=== PATIENT | male | born 1970 | race Caucasian/White ===

== ENCOUNTER 2024-02-26 14:57 | Emergency (ER) | payer OTHER ==
[~2024-02-26] VITALS: Ht 177.8 cm; Wt 81.6 kg
[2024-02-26 15:17] VITALS: BP 147/88; TEMP 98; O2SAT 98
[2024-02-26] MEDS ORDERED: IBUP-1490 PO (18:28)
[2024-02-26] MEDS ORDERED: ACET-2605 PO (18:28)
== END 2024-02-26 18:59 | disposition home or self-care (01) ==
LOC: ER 15:38
DX: S52.591A Other fractures of lower end of right radius, initial encounter for closed fracture (principal); S52.611A Displaced fracture of right ulna styloid process, initial encounter for closed fracture; Z60.2 Problems related to living alone; W18.39XA Other fall on same level, initial encounter; Y93.89 Activity, other specified; Y92.89 Other specified places as the place of occurrence of the external cause; Y99.8 Other external cause status
CPT/HCPCS: 73090-TC; 73110